=== PATIENT | female | born 1930 | race Caucasian/White ===

== ENCOUNTER 2017-12-29 10:57 | Outpatient (CLI) | payer OTHER | END 2017-12-29 11:04 | disposition home or self-care (01) | LOC: RAD 501 10:57 | DX: M25.572 Pain in left ankle and joints of left foot (principal) ==

== ENCOUNTER 2018-05-09 07:11 | Outpatient (CLI) | payer OTHER | END 2018-05-09 07:18 | disposition home or self-care (01) | LOC: LAB 07:11 | DX: E55.9 Vitamin D deficiency, unspecified (principal); E88.89 Other specified metabolic disorders; E21.2 Other hyperparathyroidism; M85.88 Other specified disorders of bone density and structure, other site; M81.8 Other osteoporosis without current pathological fracture; E83.42 Hypomagnesemia; E56.1 Deficiency of vitamin K ==